=== PATIENT | female | born 1985 | race Caucasian/White ===

== ENCOUNTER 2018-03-27 08:55 | Day surgery (SDC) | payer BC ==
[~2018-03-27] VITALS: Ht 170.2 cm; Wt 65.6 kg
[2018-03-27 09:18] VITALS: BP 128/89; PULSE 78; TEMP 98.6
[2018-03-27] MEDS ORDERED: ZYRTEC 10MG10 MG PO (09:23)
[2018-03-27] MEDS ORDERED: PRENATAL FORMU1 EAC3 PO (09:24)
[2018-03-27] MEDS ORDERED: PROBIOTIC FORMU1 CAP PO (09:24)
[2018-03-27 10:45] VITALS: BP 116/80; PULSE 73; TEMP 98.5
--- NOTE | 2018-03-27 10:45 | NUR ---
The patient is wheeled to [facility] via cart by Reece HOLGUIN. The patient ambulates to the chair with a steady gait and nurse standby assist. The patient's vital signs are stable. Report is obtained. The patient requests water which is brought to her at this time. The call light is within reach and the patient's significant other is at the bedside. Will continue to monitor.
[2018-03-27 11:00] VITALS: BP 102/62; PULSE 601
--- NOTE | 2018-03-27 11:00 | NUR ---
The patient's vital signs are stable. The patient tolerated the water and states that she is feeling nauseous. The patient requests sprite and crackers which is brought to her at this time. The patient is also given an emesis bag. The call light is within reach and the patient's significant other is at the bedside. Will continue to monitor.
[2018-03-27 11:15] VITALS: BP 105/69; PULSE 61
--- NOTE | 2018-03-27 11:15 | NUR ---
The patient states she is still nauseous after eating the crackers and drinking the sprite. Dr. Mane talks to the patient and requests an administration of Zofran which will be administered. The call light is within reach and the patient's significant other is at the bedside. Will continue to monitor.
--- NOTE | 2018-03-27 11:25 | NUR ---
Zofran 4mg is administered per order from Dr. Mane.
[2018-03-27 11:30] VITALS: BP 100/66; PULSE 67
--- NOTE | 2018-03-27 11:30 | NUR ---
The patient's vital signs are stable. The patient states she is still nauseous. The patient will be allowed to rest some more. The call light is within reach and the patient's significant other is at the bedside. Will continue to monitor.
--- NOTE | 2018-03-27 11:53 | NUR ---
The patient states that she is still nauseous but would like to be discharged home. The discharge instructions are reviewed with the patient and her significant other and all questions are answered. The IV is removed and the tip is intact and a dressing is applied. The patient changes into her personal clothes to be discharged home.
--- NOTE | 2018-03-27 12:02 | NUR ---
The patient is wheeled to the patient entrance via wheelchair by Ashtyn GONZALEZ to be discharged home via personal vehicle by her significant other. The patient is sent home with her discharge instructions and education packet.
== END 2018-03-27 12:02 | disposition home or self-care (01) ==
LOC: SDCO 08:55
DX: D72.820 Lymphocytosis (symptomatic) (principal); R53.83 Other fatigue; R19.7 Diarrhea, unspecified; R11.2 Nausea with vomiting, unspecified; Z88.1 Allergy status to other antibiotic agents; Z83.79 Family history of other diseases of the digestive system
CPT/HCPCS: J2250; J2405; J3010; J7030

== ENCOUNTER → 2021-10-19 | Outpatient (CLI) | payer BC ==
[~2021-10-19] MED LIST: PRENATAL FORMU1 EAC3 PO; PROBIOTIC FORMU1 CAP PO; ZYRTEC 10MG10 MG PO
== END ==
LOC: MHCPAIN 14:47
DX: M79.642 Pain in left hand (principal); M79.675 Pain in left toe(s)
CPT/HCPCS: G0463